=== PATIENT | female | born 1985 | race Two or more races ===

== ENCOUNTER 2017-05-22 12:20 | Emergency (ER) | payer OTHER ==
[~2017-05-22] VITALS: Ht 149.9 cm; Wt 49.9 kg
[~2017-05-22 12:20] MED LIST: AMOXICILLIN500 MG ORAL; CORTISPORIN EAR10 ML BOTH EARS; HYDROCODON-ACE1 EA15 ORAL; IBUPROFEN600 MG ORAL; IRON325 M2 PO; OXYCODONE-ACET1 EAC3 ORAL; TRAMADOL HCL50 MG ORAL
[2017-05-22] MEDS ORDERED: AMLODIPINE BESYL5 MG ORAL (12:38)
[2017-05-22] MEDS ORDERED: PROPRANOLOL HCL20 MG ORAL (12:38)
[2017-05-22 12:41] VITALS: BP 139/100
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
[2017-05-22] MEDS ORDERED: Ketorolac 60mg Inj IM ONE (13:30)
[2017-05-22] MEDS ORDERED: IBUPROFEN600 MG ORAL (13:40)
[2017-05-22] MEDS ORDERED: ROBAXIN500 MG PO (13:40)
[2017-05-22] MEDS ORDERED: SOMA350 MG PO (13:40)
[2017-05-22 13:50] VITALS: BP 139/100
== END 2017-05-22 13:50 | disposition home or self-care (01) ==
LOC: EMR 13:40
DX: S16.1XXA Strain of muscle, fascia and tendon at neck level, initial encounter (principal); V43.52XA Car driver injured in collision with other type car in traffic accident, initial encounter; Y92.411 Interstate highway as the place of occurrence of the external cause; I10 Essential (primary) hypertension
CPT/HCPCS: 96372; 99284

== ENCOUNTER 2017-08-11 19:42 | Emergency (ER) | payer OTHER ==
[~2017-08-11] VITALS: Ht 149.9 cm; Wt 54.4 kg
[~2017-08-11 19:42] MED LIST changes: +AMLODIPINE BESYL5 MG ORAL; +PROPRANOLOL HCL20 MG ORAL; +ROBAXIN500 MG PO; +SOMA350 MG PO
[2017-08-11] MEDS ORDERED: Sodium Chloride 500ML 500 ML IV ONE (19:58)
[2017-08-11 20:00] VITALS: BP 176/90
[2017-08-11 20:30] LABS: BASOPHILS % (AUTO) 0.8 % (0.0-2.0); EOSINOPHILS % (AUTO) 1.1 % (0.0-3.0); HEMATOCRIT 41.4 % (37.0-47.0); HEMOGLOBIN 13.2 G/DL (12.0-16.0); LYMPHOCYTES % (AUTO) 45.7 % (20.0-45.0); MEAN CORPUSCULAR VOLUME 76 FL (80-99); MONOCYTES % (AUTO) 2.2 % (1.0-10.0); NEUTROPHILS % (AUTO) 50.2 % (45.0-75.0); PLATELET COUNT 250 K/UL (150-450); RED BLOOD COUNT 5.42 M/UL (4.20-5.40); RED CELL DISTRIBUTION WIDTH 13.3 % (11.6-14.8); WHITE BLOOD COUNT 10.9 K/UL (4.8-10.8)
[2017-08-11 20:31] LABS: APPEARANCE,URINE CLEAR; BILIRUBIN, URINE NEGATIVE (NEGATIVE); COLOR,URINE PALE YELLOW; GLUCOSE, URINE (UA) NEGATIVE (NEGATIVE); KETONES,URINE NEGATIVE (NEGATIVE); LEUKOCYTE ESTERASE ,URINE 1+ (NEGATIVE); NITRITE,URINE NEGATIVE (NEGATIVE); PH,URINE 6 (4.5-8.0); PROTEIN,URINE 1+ (NEGATIVE); UROBILINOGEN,URINE NORMAL MG/DL (0.0-1.0)
[2017-08-11 20:37] LABS: ANION GAP 8 mmol/L (5-15); BLOOD UREA NITROGEN 17 mg/dL (7-18); CALCIUM 8.6 MG/DL (8.5-10.1); CARBON DIOXIDE 27 MMOL/L (21-32); CHLORIDE 104 MMOL/L (98-107); CREATININE 0.7 MG/DL (0.55-1.30); POTASSIUM 3.6 MMOL/L (3.5-5.1); SODIUM 139 MMOL/L (136-145)
[2017-08-11 20:46] VITALS: BP 136/90
--- NOTE | 2017-08-11 20:46 | Diagnostic Imaging Report ---
EXAM: XR Chest, 1 View CLINICAL HISTORY: CP TECHNIQUE: Frontal view of the chest. COMPARISON: 02/11/2016 chest x-ray FINDINGS: Lungs: Unremarkable. No consolidation. Pleural space: Unremarkable. No pneumothorax. Heart: Unremarkable. No cardiomegaly. Mediastinum: Unremarkable. Bones/joints: Unremarkable. IMPRESSION: Normal chest x-ray.
[2017-08-11 20:50] LABS: ALANINE AMINOTRANSFERASE 24 U/L (12-78); ALBUMIN 3.9 G/DL (3.4-5.0); ALBUMIN/GLOBULIN RATIO 1.1 (1.0-2.7); ALKALINE PHOSPHATASE 75 U/L (46-116); ASPARTATE AMINO TRANSFERASE 23 U/L (15-37); BILIRUBIN,TOTAL 0.3 MG/DL (0.2-1.0); CKMB 0.5 NG/ML (0.0-3.6); CREATINE KINASE 94 U/L (26-308)
[2017-08-11 21:15] VITALS: BP 136/90
--- NOTE | 2017-08-12 15:21 | Emergency Room Report ---
History of Present Illness General Chief Complaint: Palpitations Source: Patient, Medical Record Present Illness HPI Patient presents with complaint of palpitation sensation that is been ongoing for the past 10 days Denies any change in social circumstances denies any new medication Denies any pain with this denies any vomiting or diarrhea Patient reported some lightheadedness at times feeling weak Denies any focal weakness Patient is currently on her menstrual cycle Reported an episode of near-syncope during hot shower today Allergies: Coded Allergies: No Known Allergies (Unverified , 04/22/14) Patient History Past Medical History: see triage record Pertinent Family History: none Last Menstrual Period: 08/10/17 Now: No : 2 Para: 2 Reviewed Nursing Documentation: PMH: Agreed; PSxH: Agreed Nursing Documentation-PMH Hx Hypertension: Yes Review of Systems All Other Systems: negative except mentioned in HPI Physical Exam Vital Signs Date Time Temp Pulse Resp B/P (MAP) Pulse Ox O2 Delivery O2 Flow Rate FiO2 08/11/17 19:45 98.7 90 14 172/84 97 Room Air 98.8 Sp02 EP Interpretation: reviewed, normal General Appearance: well appearing, no apparent distress Head: normocephalic, atraumatic Eyes: bilateral eye PERRL, bilateral eye EOMI ENT: hearing grossly normal, normal pharynx, TMs + canals normal, uvula midline Neck: full range of motion, supple, no meningismus, no bony tend Respiratory: lungs clear, normal breath sounds, no rhonchi, no respiratory distress, no retraction, no accessory muscle use Cardiovascular #1: normal peripheral pulses, regular rate, rhythm, no edema, no gallop, no JVD, no murmur Gastrointestinal: normal bowel sounds, non tender, soft, no mass, no organomegaly, non-distended, no guarding, no hernia, no pulsatile mass, no rebound Genitourinary: no CVA tenderness Musculoskeletal: normal inspection Neurologic: oriented x3, responsive, forming machine adjuster III-XII nml as tested, motor strength/ tone normal, sensory intact Psychiatric: mood/affect normal Skin: normal color, no rash, warm/dry, palpation normal Lymphatic: normal inspection, no adenopathy Medical Decision Making Diagnostic Impression: Primary Impression: palpitations ER Course Patient is a fairly complex patient with multiple differential to consideration including but not limited to cardiac cardiopulmonary and vascular emergencies Patient's blood work is initiated At this time EKG is appropriate there was a PVC on the EKG Patient on the director of cardiac rehabilitation remains in appropriate rhythm Again blood work is appropriate X-ray negative patient stable for close outpatient follow-up Labs Test 08/11/17 20:10 White Blood Count 10.9 K/UL (4.8-10.8) Red Blood Count 5.42 M/UL (4.20-5.40) Hemoglobin 13.2 G/DL (12.0-16.0) Hematocrit 41.4 % (37.0-47.0) Mean Corpuscular Volume 76 FL (80-99) Mean Corpuscular Hemoglobin 24.4 PG (27.0-31.0) Mean Corpuscular Hemoglobin Concent 32.0 G/DL (32.0-36.0) Red Cell Distribution Width 13.3 % (11.6-14.8) Platelet Count 250 K/UL (150-450) Mean Platelet Volume 7.4 FL (6.5-10.1) Neutrophils (%) (Auto) 50.2 % (45.0-75.0) Lymphocytes (%) (Auto) 45.7 % (20.0-45.0) Monocytes (%) (Auto) 2.2 % (1.0-10.0) Eosinophils (%) (Auto) 1.1 % (0.0-3.0) Basophils (%) (Auto) 0.8 % (0.0-2.0) Urine Color Pale yellow Urine Appearance Clear Urine pH 6 (4.5-8.0) Urine Specific [place] 1.010 (1.005-1.035) Urine Protein 1+ (NEGATIVE) Urine Glucose (UA) Negative (NEGATIVE) Urine Ketones Negative (NEGATIVE) Urine Occult Blood 5+ (NEGATIVE) Urine Nitrite Negative (NEGATIVE) Urine Bilirubin Negative (NEGATIVE) Urine Urobilinogen Normal MG/DL (0.0-1.0) Urine Leukocyte Esterase 1+ (NEGATIVE) Urine RBC 5-10 /HPF (0 - 2) Urine WBC 2-4 /HPF (0 - 2) Urine Squamous Epithelial Cells Few /LPF (NONE/OCC) Urine Bacteria Occasional /HPF (NONE) Urine HCG, Qualitative Negative (NEGATIVE) Sodium Level 139 MMOL/L (136-145) Potassium Level 3.6 MMOL/L (3.5-5.1) Chloride Level 104 MMOL/L (98-107) Carbon Dioxide Level 27 MMOL/L (21-32) Anion Gap 8 mmol/L (5-15) Blood Urea Nitrogen 17 mg/dL (7-18) Creatinine 0.7 MG/DL (0.55-1.30) Estimat Glomerular Filtration Rate > 60 mL/min (>60) Glucose Level 103 MG/DL (74-106) Calcium Level 8.6 MG/DL (8.5-10.1) Total Bilirubin 0.3 MG/DL (0.2-1.0) Aspartate Amino Transf (AST/SGOT) 23 U/L (15-37) Alanine Aminotransferase (ALT/SGPT) 24 U/L (12-78) Alkaline Phosphatase 75 U/L (46-116) Total Creatine Kinase 94 U/L (26-308) Creatine Kinase MB 0.5 NG/ML (0.0-3.6) Creatine Kinase MB Relative Index 0.5 Total Protein 7.6 G/DL (6.4-8.2) Albumin 3.9 G/DL (3.4-5.0) Globulin 3.7 g/dL Albumin/Globulin Ratio 1.1 (1.0-2.7) Lipase 186 U/L (73-393) EKG Diagnostic Results Rate: normal Rhythm: NSR ST Segments: no acute changes - Nonspecific PVC Rhythm Strip Diag. Results EP Interpretation: yes Rate: 78 Rhythm: NSR, no PVC's, no ectopy Chest X-Ray Diagnostic Results Chest X-Ray Diagnostic Results : Chest X-Ray Ordered: Yes # of Views/Limited/Complete: 1 View Indication: Chest Pain EP Interpretation: Yes Interpretation: no consolidation, no effusion, no pneumothorax Impression: No acute disease Electronically Signed by: Lorraine Luna DO Last Vital Signs Date Time Temp Pulse Resp B/P (MAP) Pulse Ox O2 Delivery O2 Flow Rate FiO2 08/11/17 21:15 98.8 93 14 136/90 97 Room Air 98.8 Status: improved Disposition: HOME, SELF-CARE Condition: Improved Referrals: [facility],REFERRING (PCP) Patient Instructions: Palpitations, [id number] Additional Instructions: Patient is provided with the discharge instructions notified to follow up with primary doctor in the next 2-3 days otherwise return to the er with any worsening symptoms. Please note that this report is being documented using Searchbox technology. This can lead to erroneous entry secondary to incorrect interpretation by the dictating instrument. Lorraine Luna DO Aug 12, 2017 15:21
--- NOTE | 2017-08-16 15:31 | Cardiology Report ---
APPROVED REPORT EKG Measurement Heart [id number] Sinus rhythm with occasional premature ventricular complexes Otherwise normal ECG
== END 2017-08-11 21:17 | disposition home or self-care (01) ==
LOC: EMR 20:08
DX: R00.2 Palpitations (principal); I10 Essential (primary) hypertension
CPT/HCPCS: 36415; 71045; 80053; 81003; 81025; 82550; 82553; 83690; 85025; 93005; 96360; 99284

== ENCOUNTER 2018-04-30 15:04 | Emergency (ER) | payer OTHER ==
[~2018-04-30] VITALS: Ht 149.9 cm; Wt 52.2 kg
[2018-04-30] MEDS ORDERED: Ketorolac 30mg Inj IM ONE (16:00)
[2018-04-30 16:01] VITALS: BP 142/91
[2018-04-30 16:16] LABS: APPEARANCE,URINE CLEAR; BILIRUBIN, URINE NEGATIVE (NEGATIVE); GLUCOSE, URINE (UA) NEGATIVE (NEGATIVE); KETONES,URINE NEGATIVE (NEGATIVE); LEUKOCYTE ESTERASE ,URINE 1+ (NEGATIVE); NITRITE,URINE NEGATIVE (NEGATIVE); PH,URINE 7 (4.5-8.0); PROTEIN,URINE NEGATIVE (NEGATIVE); UROBILINOGEN,URINE 4 MG/DL (0.0-1.0)
[2018-04-30 16:18] LABS: COLOR,URINE YELLOW
--- NOTE | 2018-04-30 16:31 | Emergency Room Report ---
History of Present Illness General Chief Complaint: Back Pain-No Injury Source: Patient Present Illness HPI 32-year-old female presents to the emergency department complaining of 5 out of 10 in severity low back pain that she describes as constant in nature with exacerbation upon forward flexion and standing straight as well as laying flat on her back. 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 Patient denies fevers or chills she denies paresthesias in the lower extremities, saddle anesthesia, incontinence of her bowel or bladder. Patient denies urinary retention. Patient denies radiation of her pain down her legs. She states she's been using hot heating pads as well as taking warm baths which provided some mild relief of her symptoms that her temporarily and usually return after 2 hours. She denies history of recent spinal procedures or neoplastic disease. She is requesting analysis testing she wants to make sure her kidneys are not the culprit. Patient denies urinary frequency, urgency, dysuria, hematuria or abdominal pain/tenderness. Allergies: Coded Allergies: No Known Allergies (Unverified , 04/22/14) Patient History Past Medical History: see triage record Past Surgical History: none Pertinent Family History: none Now: No Reviewed Nursing Documentation: PMH: Agreed; PSxH: Agreed Nursing Documentation-PMH Hx Hypertension: Yes Review of Systems All Other Systems: negative except mentioned in HPI Physical Exam Vital Signs Date Time Temp Pulse Resp B/P (MAP) Pulse Ox O2 Delivery O2 Flow Rate FiO2 04/30/18 15:08 98.2 91 16 142/91 97 Room Air Sp02 EP Interpretation: reviewed, normal General Appearance: no apparent distress, alert, GCS 15, non-toxic Head: normocephalic, atraumatic Eyes: bilateral eye normal inspection, bilateral eye PERRL ENT: hearing grossly normal, normal voice Neck: full range of motion Respiratory: lungs clear, normal breath sounds, speaking full sentences Cardiovascular #1: regular rate, rhythm Gastrointestinal: normal bowel sounds, non tender, soft Rectal: deferred Genitourinary: normal inspection, no CVA tenderness Musculoskeletal: back normal, gait/station normal, normal range of motion, tender Neurologic: alert, oriented x3, responsive, motor strength/tone normal, sensory intact, speech normal, grossly normal Psychiatric: judgement/insight normal Skin: normal color, no rash, warm/dry, well hydrated Lymphatic: no adenopathy Medical Decision Making PA Attestation Dr. Peters is my supervising Physician whom patient management has been discussed with. Diagnostic Impression: Primary Impression: Strain, lumbosacral, chronic or old ER Course 32-year-old female presents to the emergency department complaining of 5 out of 10 in severity low back pain that she describes as constant in nature with exacerbation upon forward flexion and standing straight as well as laying flat on her back. 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 Patient denies fevers or chills she denies paresthesias in the lower extremities, saddle anesthesia, incontinence of her bowel or bladder. Patient denies urinary retention. Patient denies radiation of her pain down her legs. She states she's been using hot heating pads as well as taking warm baths which provided some mild relief of her symptoms that her temporarily and usually return after 2 hours. She denies history of recent spinal procedures or neoplastic disease. She is requesting analysis testing she wants to make sure her kidneys are not the culprit. Patient denies urinary frequency, urgency, dysuria, hematuria or abdominal pain/tenderness. Ddx considered: epidural abscess, fracture, sprain/strain, meningitis, spinal chord injury, sciatica, cauda equina, Pyelonephritis, renal calculi just to name a few. Vital signs reviewed and are WNL during ED visit. Pt. is afebrile with no signs of infection No new symptoms, and denies recent trauma. No saddle anesthesia noted, Pt. denies incontinence Neurovascular is intact ROM is limited due to pain ORDERS: -urinalysis: Unremarkable no evidence of acute urinary tract infection. INTERVENTIONS: - 20mg IM Toradol -Lidocaine 5 % patch -I do not identify an emergent condition at this time. With current presentation , pt. is stable for close outpatient follow up and conservative treatment. D/ w pt. to return promptly to ED with worsening or new symptoms.- Pt. verbalizes' understanding and agreement with proposed treatment plan.proposed treatment plan. DISCHARGE: At this time pt. is stable for d/c to home. Will provide printed patient care instructions, and any necessary prescriptions. Care plan and follow up instructions have been discussed with the patient prior to discharge. Labs Test 04/30/18 16:08 Urine Color Yellow Urine Appearance Clear Urine pH 7 (4.5-8.0) Urine Specific [place] 1.015 (1.005-1.035) Urine Protein Negative (NEGATIVE) Urine Glucose (UA) Negative (NEGATIVE) Urine Ketones Negative (NEGATIVE) Urine Blood Negative (NEGATIVE) Urine Nitrite Negative (NEGATIVE) Urine Bilirubin Negative (NEGATIVE) Urine Urobilinogen 4 MG/DL (0.0-1.0) Urine Leukocyte Esterase 1+ (NEGATIVE) Urine RBC 0-2 /HPF (0 - 2) Urine WBC 2-4 /HPF (0 - 2) Urine Squamous Epithelial Cells Few /LPF (NONE/OCC) Urine Amorphous Sediment Few /LPF (NONE) Urine Bacteria Few /HPF (NONE) Last Vital Signs Date Time Temp Pulse Resp B/P (MAP) Pulse Ox O2 Delivery O2 Flow Rate FiO2 04/30/18 16:01 98.2 69 16 142/91 97 Room Air Disposition: HOME, SELF-CARE Condition: Stable Scripts Ibuprofen* (MOTRIN*) 600 Mg Tablet 600 MG ORAL THREE TIMES A DAY, #30 TAB 0 Refills Prov: Sammie Milton 04/30/18 Lidocaine (Lidoderm) 1 Each Adh..patch 1 PATCH TOPIC DAILY, #30 PATCH 0 Refills Patch(es) may remain in place for up to 12 hours in any 24-hour period. Prov: Sammie Milton 04/30/18 Methocarbamol* (ROBAXIN-750*) 750 Mg Tablet 750 MG PO QID for 7 Days, #28 TAB 0 Refills Prov: Sammie Milton 04/30/18 Referrals: NON PHYSICIAN (PCP) Departure Forms: Return to Work Return to Work Date: May 03, 2018 Work Restrictions: No Heavy Lifting, No Prolonged Standing Other Restrictions: May return Sooner if Symptoms have resolved. Return to Full Activity: May 10, 2018 Patient Instructions: Back Pain, Adult Additional Instructions: Take medications as directed. Follow up with a Primary Care Provider in 3-5 days, even if your symptoms have resolved. --Please review list of primary care clinics, if you do not already have a primary care provider Return sooner to ED if new symptoms occur, or current symptoms become worse. Do not drink alcohol, drive, or operate heavy machinery while taking Robaxin ( Muscle Relaxers) as this may cause drowsiness. - Please note that this Emergency Department Report was dictated using Tactilizepiledriver carpenter technology software, occasionally this can lead to erroneous entry secondary to interpretation by the dictation equipment. Sammie Milton Apr 30, 2018 16:31
[2018-04-30] MEDS ORDERED: ROBAXIN-750750 MG PO (16:32)
[2018-04-30] MEDS ORDERED: LIDODERM700 M1 TOPIC (16:32)
[2018-04-30] MEDS ORDERED: IBUPROFEN600 MG ORAL (16:32)
[2018-04-30 16:35] VITALS: BP 142/91
--- NOTE | 2018-04-30 16:35 | NUR ---
ER DISCHARGE NOTE: Patient is cleared to be discharged per ERMD, pt is aox4, on room air, with stable vital signs. pt was given dc and prescription instructions, pt was able to verbalize understanding, pt is able to ambulate with steady gait. pt took all belongings.
== END 2018-04-30 16:53 | disposition home or self-care (01) ==
LOC: EMR 15:35
DX: S16.1XXD Strain of muscle, fascia and tendon at neck level, subsequent encounter (principal); X58.XXXD Exposure to other specified factors, subsequent encounter; I10 Essential (primary) hypertension
CPT/HCPCS: 81001; 96372; 99283; J1885

== ENCOUNTER 2018-06-30 06:21 | Emergency (ER) | payer OTHER ==
[~2018-06-30] VITALS: Ht 149.9 cm; Wt 54.4 kg
[~2018-06-30 06:21] MED LIST changes: +LIDODERM700 M1 TOPIC; +ROBAXIN-750750 MG PO
[2018-06-30] MEDS ORDERED: PAROXETINE HC12.5 MG ORAL (06:31)
--- NOTE | 2018-06-30 06:33 | NUR ---
ED Nurse Note: pt came to ed from work, c/o left wrist pain. per pt she tripped on a side walk on monday and caught her fall with her left hand. pt states she uses bengay and has been wrapping her wrist but it is still painful.
--- NOTE | 2018-06-30 06:34 | NUR ---
ED Nurse Note: pt left wrist is mobile, skin dry and intact.
[2018-06-30 06:35] VITALS: BP 136/77
--- NOTE | 2018-06-30 06:53 | Emergency Room Report ---
History of Present Illness General Chief Complaint: Upper Extremity Injury Source: Patient Present Illness HPI Patient presents with complaints of left hand pain patient points mainly to the thenar eminence reports that last Monday she had a fall There was a tripped on the curb falling forward and putting her left hand forward Denies any elbow pain denies any shoulder pain denies any head injury or lapse of consciousness pain is worse with tried to grab her purse or trying to make a full fist otherwise able to move all digits Allergies: Coded Allergies: No Known Allergies (Unverified , 04/22/14) Patient History Past Medical History: see triage record Pertinent Family History: none Last Menstrual Period: 06/25 Now: No : 2 Reviewed Nursing Documentation: PMH: Agreed; PSxH: Agreed Nursing Documentation-PMH Past Medical History: No Stated History Hx Hypertension: Yes Review of Systems All Other Systems: negative except mentioned in HPI Physical Exam Vital Signs Date Time Temp Pulse Resp B/P (MAP) Pulse Ox O2 Delivery O2 Flow Rate FiO2 06/30/18 06:22 97.5 84 18 95 Room Air 06/30/18 06:35 136/77 Sp02 EP Interpretation: reviewed, normal General Appearance: well appearing, no apparent distress Head: normocephalic, atraumatic Eyes: bilateral eye PERRL, bilateral eye EOMI ENT: hearing grossly normal, normal pharynx Neck: supple Respiratory: lungs clear, no retraction, no accessory muscle use Cardiovascular #1: regular rate, rhythm Gastrointestinal: non tender, soft Musculoskeletal: other - Some discomfort palpable to the thenar eminence no obvious ecchymosis patient able to make thumbs up approximate all digits Neurologic: alert, oriented x3, responsive Skin: normal color, no rash Lymphatic: no adenopathy Medical Decision Making Diagnostic Impression: Primary Impression: Contusion ER Course Given the patient's history and presentation x-ray imaging was done no obvious acute pathology is seen patient appears to have findings consistent with contusion involving also the thenar eminence Patient will continue to rest and is taking anti-inflammatory at home And is stable for close outpatient follow-up Other X-Ray Diagnostic Results Other X-Ray Diagnostic Results : X-Ray ordered: Left hand # of Views/Limited Vs Complete: 3 View Indication: Pain EP Interpretation: Yes Interpretation: no dislocation, no soft tissue swelling, no fractures Impression: No acute disease Electronically Signed by: Lorraine Luna DO Last Vital Signs Date Time Temp Pulse Resp B/P (MAP) Pulse Ox O2 Delivery O2 Flow Rate FiO2 06/30/18 06:35 97.5 84 18 136/77 95 Room Air Status: improved Disposition: HOME, SELF-CARE Condition: Improved Additional Instructions: Patient is provided with the discharge instructions notified to follow up with primary doctor in the next 2-3 days otherwise return to the er with any worsening symptoms. Please note that this report is being documented using [employer] technology. This can lead to erroneous entry secondary to incorrect interpretation by the dictating instrument. Lorraine Luna DO June 30, 2018 06:53
--- NOTE | 2018-06-30 07:02 | NUR ---
ED Nurse Note: XRAY completed
[2018-06-30 07:30] VITALS: BP 124/73
--- NOTE | 2018-06-30 07:30 | NUR ---
ER DISCHARGE NOTE: Patient is cleared to be discharged per ERMD, pt is aox4, on room air, with stable vital signs. pt was given dc and prescription instructions, pt was able to verbalize understanding, pt id band removed. pt is able to ambulate with steady gait. pt took all belongings.
--- NOTE | 2018-06-30 08:21 | Diagnostic Imaging Report ---
3 VIEW LEFT HAND: HISTORY: 32-year-old female status post trauma. COMPARISON: None. FINDINGS: No acute fracture, subluxation, or dislocation is identified. There is probable soft tissue swelling involving at least the proximal index finger. Bone density appears normal. No evidence of arthritis. IMPRESSION: No acute fracture identified.
== END 2018-06-30 07:30 | disposition home or self-care (01) ==
LOC: EMR 06:57
DX: S60.222A Contusion of left hand, initial encounter (principal); W01.0XXA Fall on same level from slipping, tripping and stumbling without subsequent striking against object, initial encounter; Y92.9 Unspecified place or not applicable; I10 Essential (primary) hypertension
CPT/HCPCS: 99281

== ENCOUNTER 2018-07-28 06:19 | Emergency (ER) | payer OTHER ==
[~2018-07-28] VITALS: Ht 149.9 cm; Wt 54.4 kg
[~2018-07-28 06:19] MED LIST changes: +PAROXETINE HC12.5 MG ORAL
[2018-07-28 06:23] VITALS: BP 127/90
--- NOTE | 2018-07-28 06:23 | NUR ---
ED Nurse Note: PAtient came in with complaints of cough x 3 weeks.
--- NOTE | 2018-07-28 06:30 | NUR ---
ED Nurse Note: CXR performed and breathing treatment started.
--- NOTE | 2018-07-28 06:43 | Emergency Room Report ---
History of Present Illness General Chief Complaint: Upper Respiratory Illness Source: Patient Present Illness HPI Patient presents with reports of cough Ongoing for the past 7 days increased phlegm production Complains of some tightness with the cough Denies any vomiting or diarrhea denies any fevers or chills denies any recent travel Denies any focal weakness Allergies: Coded Allergies: No Known Allergies (Unverified , 04/22/14) Patient History Past Medical History: see triage record Pertinent Family History: none Last Menstrual Period: Jul 13 2018 Now: No Reviewed Nursing Documentation: PMH: Agreed; PSxH: Agreed Nursing Documentation-PMH Hx Hypertension: Yes Review of Systems All Other Systems: negative except mentioned in HPI Physical Exam Vital Signs Date Time Temp Pulse Resp B/P (MAP) Pulse Ox O2 Delivery O2 Flow Rate FiO2 07/28/18 06:23 98.8 83 18 127/90 (102) 97 Room Air Sp02 EP Interpretation: reviewed, normal General Appearance: well appearing, no apparent distress Head: normocephalic, atraumatic Eyes: bilateral eye PERRL, bilateral eye EOMI ENT: hearing grossly normal, normal pharynx, TMs + canals normal, uvula midline Neck: full range of motion, supple, no meningismus, no bony tend Respiratory: lungs clear, normal breath sounds, no rhonchi, no respiratory distress, no retraction, no accessory muscle use Cardiovascular #1: normal peripheral pulses, regular rate, rhythm, no edema, no gallop, no JVD, no murmur Gastrointestinal: normal bowel sounds, non tender, soft, no mass, no organomegaly, non-distended, no guarding, no hernia, no pulsatile mass, no rebound Genitourinary: no CVA tenderness Musculoskeletal: normal inspection Neurologic: oriented x3, responsive, chemistry associate III-XII nml as tested, motor strength/ tone normal, sensory intact Psychiatric: mood/affect normal Skin: normal color, no rash, warm/dry, palpation normal Lymphatic: normal inspection, no adenopathy Medical Decision Making Diagnostic Impression: Primary Impression: Community acquired pneumonia ER Course Patient is a fairly complex patient with multiple differential to consideration including but not limited to cardiac cardiopulmonary and vascular emergencies Patient continues to saturate well no obvious respiratory distress feels improved after breathing treatment Chest x-ray shows some markings and atelectasis no obvious focal infiltrate given the patient's history and presentation I feel that patient clinically meets criteria for community-acquired pneumonia and is placed on antibiotics for initial conservative outpatient trial Rhythm Strip Diag. Results EP Interpretation: yes Rate: 77 Rhythm: NSR, no PVC's, no ectopy Chest X-Ray Diagnostic Results Chest X-Ray Diagnostic Results : Chest X-Ray Ordered: Yes # of Views/Limited/Complete: 1 View Indication: Shortness of Breath EP Interpretation: Yes Interpretation: no consolidation, no effusion, no pneumothorax, other - Of atelectasis Impression: No acute disease Electronically Signed by: Lorraine Luna DO Last Vital Signs Date Time Temp Pulse Resp B/P (MAP) Pulse Ox O2 Delivery O2 Flow Rate FiO2 07/28/18 06:23 98.8 83 18 127/90 (102) 97 Room Air Status: improved Disposition: HOME, SELF-CARE Condition: Improved Scripts Promethazine Hcl (PROMETHAZINE HCL*) 6.25 Mg/5 Ml Syrup 5 ML ORAL Q8H for 5 Days, #120 ML 0 Refills Prov: Lorraine Luna DO 07/28/18 Albuterol Sulfate* (ALBUTEROL SULFATE HHN*) 2.5 Mg/3 Ml Vial.neb 2.5 MG HHN Q4H PRN for Shortness of Breath, #25 VIAL Prov: Lorraine Luna DO 07/28/18 Levofloxacin* (LEVAQUIN*) 750 Mg Tablet 750 MG ORAL DAILY for 7 Days, TAB Prov: Lorraine Luna DO 07/28/18 Additional Instructions: Patient is provided with the discharge instructions notified to follow up with primary doctor in the next 2-3 days otherwise return to the er with any worsening symptoms. Please note that this report is being documented using [employer] technology. This can lead to erroneous entry secondary to incorrect interpretation by the dictating instrument. Lorraine Luna DO Jul 28, 2018 06:43
[2018-07-28] MEDS ORDERED: Levalbuterol Inh UD 1.25mg/0.5ml HHN ONE (06:45)
--- NOTE | 2018-07-28 07:03 | NUR ---
HAND-OFF: Report given to Emerita BARBOUR.
--- NOTE | 2018-07-28 07:56 | Diagnostic Imaging Report ---
PORTABLE AP UPRIGHT CXR: HISTORY: 32-year-old female with cough. COMPARISON: Portable CXRs 08/11/2017 and 02/11/2016. FINDINGS: Lung volumes are mildly low, and there is mild probable subsegmental atelectasis in the lung bases bilaterally. No confluent lung consolidation. Heart size is within normal limits, allowing for technique and lung volumes. No abnormal mediastinal widening. No obvious pneumothorax or effusion. Bones and chest wall soft tissues are grossly unremarkable. IMPRESSION: No definite acute abnormality, allowing for mildly low lung volumes and probable minimal associated bibasilar atelectasis.
[2018-07-28] MEDS ORDERED: PROMETHAZI6.25 MG/1 ORAL (08:09)
[2018-07-28] MEDS ORDERED: LEVAQUIN750 MG ORAL (08:09)
[2018-07-28] MEDS ORDERED: ALBUTEROL2.5 MG/3 M HHN (08:09)
[2018-07-28 08:16] VITALS: BP 118/85
== END 2018-07-28 08:16 | disposition home or self-care (01) ==
LOC: EMR 07:15
DX: R05 Cough (principal); I10 Essential (primary) hypertension
CPT/HCPCS: 71045; 94640; 94664; 99283; J7644

== ENCOUNTER 2020-02-13 01:38 | Emergency (ER) | payer SELFPAY ==
[~2020-02-13] VITALS: Ht 149.9 cm; Wt 52.2 kg
[~2020-02-13 01:38] MED LIST changes: +ALBUTEROL2.5 MG/3 M HHN; +LEVAQUIN750 MG ORAL; +PROMETHAZI6.25 MG/1 ORAL
[2020-02-13 01:50] VITALS: BP 150/88
--- NOTE | 2020-02-13 01:50 | NUR ---
ED Nurse Note: Pt walked into ED from home c/o left wrist pain for 1 week. Pt states she noticed a small lump that has been increasing in size over the past week on left wrist. Pt deneis traumatic injury to wrist.
--- NOTE | 2020-02-13 02:17 | NUR ---
ED Nurse Note: psychology technician at bedside
[2020-02-13] MEDS ORDERED: IBUPROFEN600 M1 ORAL (02:43)
--- NOTE | 2020-02-13 02:44 | Emergency Room Report ---
History of Present Illness General Chief Complaint: Skin Rash/Abscess Source: Patient Present Illness HPI Is a 34-year-old female who is right-hand dominant. She presents with chief plaint of left wrist pain. She said she thought like a lump in her left wrist on the volar aspect. Pain now radiates dorsally. Is been ongoing for over a week. No trauma. Worse with movement. Worse with palpation. Pain is 8 out of 10. Better with rest. No fever chills but no drainage. Allergies: Coded Allergies: No Known Allergies (Unverified , 04/22/14) COVID-19 Screening Contact w/high risk pt: No Experienced COVID-19 symptoms?: No COVID-19 Testing performed END USER SUPPORT SPECIALIST: Yes - 02/11/20 COVID-19 Screening: Negative COVID-19 COVID-19 Testing Source: travis bundy Patient History Past Medical History: see triage record, old chart reviewed, HTN Past Surgical History: none Pertinent Family History: none Social History: Denies: smoking Last Menstrual Period: 01/21/20 Now: No Immunizations: other Reviewed Nursing Documentation: PMH: Agreed; PSxH: Agreed Nursing Documentation-PMH Past Medical History: No History, Except For Hx Hypertension: Yes Review of Systems Eye: Denies: eye pain, blurred vision ENT: Denies: ear pain, nose congestion, throat swelling Respiratory: Denies: cough, shortness of breath Cardiovascular: Denies: chest pain, palpitations Gastrointestinal: Denies: abdominal pain, diarrhea, nausea, vomiting Musculoskeletal: Reports: joint pain; Denies: back pain Skin: Denies: rash Neurological: Denies: headache, numbness Endocrine: Denies: increased thirst, increased urine Hematologic/Lymphatic: Denies: easy bruising All Other Systems: negative except mentioned in HPI Physical Exam Vital Signs Date Time Temp Pulse Resp B/P (MAP) Pulse Ox O2 Delivery O2 Flow Rate FiO2 02/13/20 01:47 99.0 85 18 150/88 (108) 98 Room Air Vitals with high blood pressure Sp02 EP Interpretation: reviewed, normal General Appearance: well appearing, no apparent distress, alert Head: normocephalic, atraumatic Eyes: bilateral eye PERRL, bilateral eye EOMI ENT: hearing grossly normal, normal pharynx Neck: full range of motion, supple, no meningismus Respiratory: chest non-tender, lungs clear, normal breath sounds Cardiovascular #1: regular rate, rhythm, no murmur Gastrointestinal: normal bowel sounds, non tender, no mass, no organomegaly, no bruit, non-distended Musculoskeletal: back normal, normal range of motion, gait/station normal, other - Left wrist: There is a circular mass measuring about 3 to 4 cm over the volar aspect of the radial pulse. It is mobile. Tender to palpation. No redness fluctuant. Psychiatric: mood/affect normal Procedures Splinting Splinting : Consent: Verbal Location: Wrist, left Pre-Made Type: velcro Pre-Proc Neuro Vasc Exam: normal Post-Proc Neuro Vasc Exam: normal Patient Tolerated: Well Complications: None Medical Decision Making Diagnostic Impression: Primary Impression: Ganglion cyst of volar aspect of left wrist ER Course She presents with symptom consistent with a ganglion cyst. No evidence of any fracture or dislocation. No evidence of any abscess. Will discharge home. Other X-Ray Diagnostic Results Other X-Ray Diagnostic Results : X-Ray ordered: Wrist x-rays, left # of Views/Limited Vs Complete: 3 View Indication: Pain EP Interpretation: Yes Interpretation: no dislocation, no soft tissue swelling, no fractures Impression: No acute disease Electronically Signed by: Bud Lopez MD Last Vital Signs Date Time Temp Pulse Resp B/P (MAP) Pulse Ox O2 Delivery O2 Flow Rate FiO2 02/13/20 01:50 99.0 78 18 150/88 98 Room Air Status: improved Disposition: HOME, SELF-CARE Condition: Stable Scripts Ibuprofen* (MOTRIN*) 600 Mg Tablet 600 MG ORAL Q6H PRN for For Pain, #30 TAB 0 Refills Prov: Bud Lopez MD 02/13/20 Referrals: NON PHYSICIAN (PCP) Additional Instructions: Follow-up with your doctor in 7 days. You may need a referral to see a surgeon. Return if symptoms worsen. Bud Lopez MD Feb 13, 2020 02:44
[2020-02-13 02:45] VITALS: BP 146/76
--- NOTE | 2020-02-13 02:45 | NUR ---
ER DISCHARGE NOTE: Patient is cleared to be discharged per ERMD, pt is aox4, on room air, with stable vital signs. Splint placed on left wrist as ordered per EDMD. pt was given dc and prescription instructions, pt was able to verbalize understanding, pt id band removed. pt is able to ambulate with steady gait. pt took all belongings.
--- NOTE | 2020-02-13 09:08 | Diagnostic Imaging Report ---
Clinical Indication:Pain and bump over dorsum of left wrist Technique: 3 views of the left wrist Comparison: None Findings: No acute fracture. No dislocation. The joint spaces are preserved. Impression: Negative
== END 2020-02-13 02:45 | disposition home or self-care (01) ==
LOC: EMR 02:10
DX: M67.432 Ganglion, left wrist (principal); I10 Essential (primary) hypertension
CPT/HCPCS: 29125; 99283